=== PATIENT | male | born 1940 | race Caucasian/White ===

== ENCOUNTER 2016-06-05 19:04 | Emergency (ER) | payer MEDICARE, OTHER ==
[~2016-06-05] VITALS: Ht 182.9 cm; Wt 120.5 kg
[2016-06-05 19:05] VITALS: BP 125/83; PULSE 99; RESP 17; O2SAT 99
[2016-06-05 19:47] LABS: BASOPHILS % (AUTO) 0.1 % (0-3); EOSINOPHILS % (AUTO) 1.1 % (0-5); Mean Corpuscular Hemoglobin 26.5 pg (27.0-35.0); Mean Corpuscular Volume 83.4 fL (81-100); NEUTROPHILS % (AUTO) 65.8 % (40-74); Platelet Count 287 bil/L (150-400)
[2016-06-05 20:09] LABS: TROPONIN T < 0.010 ug/L (0.0-0.011)
--- NOTE | 2016-06-05 20:26 | DRSVH ---
PROCEDURE: X-RAY CHEST ONE VIEW, PORTABLE ([id number]) INDICATIONS: COUGH TECHNIQUE: One view of the chest was acquired. COMPARISON: None. FINDINGS: Surgical changes and devices: None. Lungs and pleura: No pleural effusions or pneumothorax. There is hyperinflation of the lungs with f lattening of the hemidiaphragms compatible with COPD. There are linear bibasilar opacities, right gr eater than left, likely representing scarring or atelectasis. Mediastinum: Mediastinal contours appear normal. Heart size is normal. Bones and chest wall: No suspicious bony lesions. Overlying soft tissues appear unremarkable. IMPRESSION: 1. Findings compatible with COPD with linear basilar opacities suggestive of scarring or atelectasis , but early infection cannot be excluded in the right lung base. Dictated by: David Amaya M.D. on 06/05/2016 at 20:22 Approved by: David Amaya M.D. on 06/05/2016 at 20:24
[2016-06-05 21:18] LABS: APPEARANCE,URINE CLEAR (CLEAR,HAZY); COLOR,URINE STRAW (YELLOW)
[2016-06-05 21:19] LABS: OCCULT BLOOD,URINE NEGATIVE (NEGATIVE); UROBILINOGEN,URINE NORMAL (NORMAL)
[2016-06-05] MEDS ORDERED: Albuterol-Ipratropium 3 mL Inhalation Solution NEB ONE (21:30)
[2016-06-05 21:42] VITALS: PULSE 87; RESP 18; O2SAT 97
[2016-06-05 22:06] VITALS: BP 113/44; PULSE 82; RESP 20; O2SAT 94
--- NOTE | 2016-06-05 22:22 | ED.REPORT ---
HPI-General Illness Date of Service Jun 05, 2016 ED Provider: Kameron Isaac MD History of Present Illness: PAtient is a 75 y.o. M with past medical history of stroke x 2 last summer and one week ago, and pneumonia finished antibiotics 06/04/16, HTN, CAD s/p stent x 1, ankle injury. Chris presents to ED via EMS for weakness, patient stated that he walked to [facility], patient was denied entry due to being full. Patient stated he was walking and felt like he was going to collapse, patient did not fall, no head trauma. "I am just exhausted, mentally and physically." Patient denies dysuria, constipation, diarrhea, change in vision, headache, worsening right sided weakness. Nursing Notes Stated Complaint: WEAKNESS Chief Complaint: General Complaint Allergies: Coded Allergies: No Known Allergies (Unverified , 06/05/16) General Time Seen by MD: 09:10 Chief Complaint Weakness Hx Obtained From: Patient Arrived By: Ambulance Sudden in Onset?: Yes Onset Occurred: 1 - 4 hours ago Severity: Current: No pain currently Severity: Maximum: No pain Past Medical History Past Medical History CVA L ankle frx pneumonia Past Surgical History ORIF right ankle Smoking History Current Every Day Smoker Social History Alcohol Use: "Social" Review of Systems Full Review of Systems Constitutional: Reports: Fatigue, Weakness - generalized, Denies: Chills, Fever Eyes: Denies: Blurred bilateral, Diplopia Ears / Nose / Throat: Denies: Hearing loss bilateral GI: Reports: Constipation, Denies: Abdominal pain, Bloody/tarry stool Male: Denies Dysuria, Denies Flank pain, Denies Hematuria, Denies Incontinence Musculoskeletal: Reports: Back pain (chronic), Joint pain (chronic right ankle pain) Endocrine: Denies: Polydipsia, Polyphagia, Polyuria Complete sys rev & neg: except as marked. Physical Exam Vital Signs Vital Signs Date Time Temp Pulse Resp B/P Pulse Ox O2 Delivery O2 Flow Rate FiO2 06/05/16 22:06 36.8 82 20 113/44 94 Room Air 06/05/16 21:42 87 18 97 Room Air 06/05/16 19:05 36.8 99 17 125/83 99 Room Air Initial VS: Reviewed General/Constitutional: Well-developed, Well-nourished Head / Eyes: Atraumatic, Normocephalic, PERRL ENT: Mucous membranes moist, Conjunctiva normal, No scleral icterus Cardiovascular: Regular rate & rhythm, Heart sounds normal, Intact distal pulses Abdomen / GI: Soft, Non-tender, No guarding, No rebound, No distention Extremities: Vascular intact, Neuro intact, No swelling, No tenderness General/Constitutional: Awake, Alert, Well appearing Neurologic: Oriented X3, Speech NL, No motor deficits, No sensory deficits, CN II - XII intact, Cerebellar NL Mental Status: Negative: Confused Interpretation & Diagnostics Lab Results Interpretation Result Diagram: 06/05/16192906/05/161929 Test 06/05/16 19:30 06/05/16 21:04 White Blood Count 8.8th/mm3 (3.8-10.1) Red Blood Count 4.57mil/mm3 (4.40-5.80) Hemoglobin 12.1g/dL (13.8-17.2) Hematocrit 38.1% (41.0-50.0) Mean Corpuscular Volume 83.4fL (81-100) Mean Corpuscular Hemoglobin 26.5pg (27.0-35.0) Mean Corpuscular Hemoglobin Concent 31.8% (32.0-37.0) Red Cell Distribution Width 15.9% (12.3-15.4) Platelet Count 287bil/L (150-400) Neutrophils (%) (Auto) 65.8% (40-74) Lymphocytes (%) (Auto) 24.7% (14-46) Monocytes (%) (Auto) 8.0% (4-12) Eosinophils (%) (Auto) 1.1% (0-5) Basophils (%) (Auto) 0.1% (0-3) Sodium Level 136mEq/L (134-144) Potassium Level 4.2mEq/L (3.5-5.2) Chloride Level 96mEq/L (97-108) Carbon Dioxide Level 25mmol/L (18-29) Blood Urea Nitrogen 10mg/dL (8-27) Creatinine 0.84mg/dL (0.76-1.27) Estimat Glomerular Filtration Rate 95mL/min (>59) Glucose Level 112mg/dL (60-99) Calcium Level 8.3mg/dL (8.5-10.1) Total Bilirubin 0.4mg/dL (0.0-1.2) Aspartate Amino Transf (AST/SGOT) 22U/L (0-50) Alanine Aminotransferase (ALT/SGPT) 17U/L (0-44) Alkaline Phosphatase 77U/L (25-160) Troponin T < 0.010ug/L (0.0-0.011) Pro-B-Type Natriuretic Peptide 332.7pg/mL (0-486) Total Protein 6.2g/dL (6.4-8.4) Albumin 3.6g/dL (3.4-5.0) Hold Cordero Top Tube Received (Received) Urine Color Straw (YELLOW) Urine Appearance Clear (CLEAR,HAZY) Urine pH 5.0 (5.0-8.0) Urine Specific [place] 1.005 (1.003-1.035) Urine Protein Negativemg/dL (NEG,TRACE) Urine Glucose (UA) Negativemg/dL (NEGATIVE) Urine Ketones Negativemg/dL (NEGATIVE) Urine Occult Blood Negative (NEGATIVE) Urine Nitrite Negative (NEGATIVE) Urine Bilirubin Negative (NEGATIVE) Urine Urobilinogen Normalmg/dL (NORMAL) Urine Leukocyte Esterase Negative (NEGATIVE) Urine RBC 0-2/hpf (0-2) Urine WBC 0-5/hpf (0-5) Urine Epithelial Cells None/hpf (NONE-MOD) Urine Crystals None seen (NONE SEEN) Urine Bacteria None/hpf (NONE-FEW) Urine Hyaline Casts None/lpf (NONE) Urine Granular Casts None seen (NONE SEEN) Urine Waxy Casts None seen (NONE SEEN) Urine Red Blood Cell Casts None seen (NONE SEEN) Urine White Blood Cell Casts None seen (NONE SEEN) Urine Mucus None seen (None Seen) Urine Trichomonas None seen (NONE SEEN) Urine Yeast None (NONE SEEN) Urinalysis Comment None Urine Culture Reflexed Not indicated X-Ray Chest Interpretation Chest Xray Interpretation: IMPRESSION: 1. Findings compatible with COPD with linear basilar opacities suggestive of scarring or atelectasis, but early infection cannot be excluded in the right lung base. Dictated by: David Amaya M.D. on 06/05/2016 at 20:22 Approved by: David Amaya M.D. on 06/05/2016 at 20:24 Re-Eval/Medical Decision Med Decision/Clinical Course Generalized weakness s/p CVA 1-2 weeks ago in [facility] and pneumonia finised ABx therapy 06/04/16 Augmentin. Patient is currently homeless unable to sleep at snf tonight. States he has friends in [place] and would like help getting there. Ride arranged [employer] referral Chest X-ray shows signs of COPD and scarring, no acute signs of pneumonia Blood work unremarkable. EKG shows possible AV shonda dissociation Patient medcally stable for discharge Counseled Regarding: Diagnosis, Lab results, Need for follow-up, When/why to return to ED Discharge & Departure Primary Impression: Weakness Additional Impressions: Homeless History of CVA with residual deficit History of pneumonia Disposition: Home Discharge Condition All VS Reviewed: Yes Condition: Stable Patient Instructions: Leg Edema (ED) Additional Instructions: During you visit to [facility] we obtained blood work for infectious markers, hemoglobin levels, and electrolytes. We obtained and x-ray chest it showed no acute signs of infection All your lab values were within normal limits and your imaging showed no acute processes or abnormalities. Your vital signs were stable and safe for discharge. Do not hesitate to call emergency services or your primary care physician if you experience any of the following. - High unrelenting fevers. - Uncontrolled vomiting. - Severe hypertension. - Syncope or loss of consciousness. - Chest pain or severe shortness of breath. Follow up with your primary care physician in 1-2 weeks time following your emergency department visit for medication checks and general well-being. Referral for [facility] residency clinic created. Referrals: NOPCP (PCP) [facility] Res[facility] Attending Statement As attending of record for this patient, I conducted an independent history and physical exam, and agree with the resident documentation as above, and as amended. copies to: [facility] Residency [facility] ALIYAH BAXTER DO Jun 05, 2016 21:27 Kameron Isaac MD Jun 06, 2016 07:02
== END 2016-06-05 22:42 | disposition home or self-care (01) ==
LOC: SED 19:04
DX: R53.1 Weakness (principal); I10 Essential (primary) hypertension; F17.200 Nicotine dependence, unspecified, uncomplicated; Z87.01 Personal history of pneumonia (recurrent); Z59.0 Homelessness; Z86.73 Personal history of transient ischemic attack (TIA), and cerebral infarction without residual deficits; Z87.81 Personal history of (healed) traumatic fracture; Z98.61 Coronary angioplasty status
CPT/HCPCS: 36415; 71010; 80053; 81000; 83880; 84484; 85025; 93005; 94664; 99285; J7620